=== PATIENT | female | born 1955 ===

== ENCOUNTER → 2023-04-25 | Outpatient (CLI) | payer MEDICARE, MEDICAID | END | disposition home or self-care (01) | LOC: Rad HDHVI 10:05 | PROVIDERS: ATTEND Internal Medicine Cardiovascular Disease | DX: R00.2 Palpitations (principal) | CPT/HCPCS: 93306 ==

== ENCOUNTER → 2023-12-04 | Outpatient (CLI) | payer MEDICARE, MEDICAID ==
[~2023-12-04] VITALS: Ht 165.1 cm; Wt 161.3 kg
[2023-12-04] MEDS: DOBUTamine 1000MCG/ML 250 ML IV ONE (13:04)
[2023-12-04 13:15] VITALS: BP 183/98; PULSE 56; RESP 20; O2SAT 97
[2023-12-04] MEDS: cloNIDine HCL 0.1 MG TAB PO ONE (13:50)
[2023-12-04] MEDS: cloNIDine HCL 0.1 MG TAB ONE (14:00)
[2023-12-04] MEDS: DOBUTamine 1000MCG/ML 100 ML IV ONE (14:09)
[2023-12-04 14:40] VITALS: BP 168/83; PULSE 76; RESP 20; O2SAT 97
== END | disposition home or self-care (01) ==
LOC: Rad HDHVI 12:55
PROVIDERS: ATTEND Internal Medicine Cardiovascular Disease
DX: I11.0 Hypertensive heart disease with heart failure (principal); I50.33 Acute on chronic diastolic (congestive) heart failure; R00.2 Palpitations
CPT/HCPCS: 93005; 93306; 96374; G0463; J1250; 96365